=== PATIENT | female | born 1965 | race Caucasian/White ===

== ENCOUNTER → 2016-11-17 | Day surgery (SDC) | payer OTHER ==
[~2016-11-17] MED LIST: LASIX PO; NEXIUM PO; OMEPRAZOLE40 M1 PO; SYNTHROID0.15 MG PO; SYNTHROID112 MCG PO; ZOLOFT PO; ZOLOFT100 MG PO
--- NOTE | ~2016-11-17 | CO ---
Unit #: [id number] #: [id number] Patient: ELIZABETH ERNST [id number] [address] [place], [place] [address] [id number] O MR#: [id number] NAME: ELIZABETH ERNST ROOM: Age: 51 Sex: F Admission Date: 11/17/2016 : 1965 Attending Physician: Silvano Lei M.D. Primary Care Physician: Silvano Lei M.D. Consultation Date: 11/17/2016 CONSULTATION REPORT REASON FOR CONSULTATION Dysphagia and dyspepsia. HISTORY OF PRESENT ILLNESS Ms. Ernst complains of significant postprandial retrosternal ascending heartburn both during daytime as well as nighttime as well as dysphagia to solids, which is intermittent. There is no history of weight loss. Her appetite is unchanged. PAST MEDICAL HISTORY She has no significant past medical history except for that of gastroesophageal reflux. PAST SURGICAL HISTORY Included cholecystectomy, partial hysterectomy, thyroidectomy, pilonidal sinus surgery, exploratory laparotomy for endometriosis. MEDICATIONS Include the following Synthroid, Zoloft, Lasix, and Nexium and she takes 40 mg Nexium at nighttime. ALLERGIES The patient is allergic to codeine. SOCIAL HISTORY The patient does smoke and has more than 40 pack year history of smoking. Does not drink alcohol. FAMILY HISTORY There is no family history of colon, pancreatic cancer, or liver disease. REVIEW OF SYSTEMS Detailed review of organ systems does not reveal any recent weight loss. No history of fever, chills, or rigors. No history of headache, seizure, chest pain, or syncope. No history of cough, expectoration, or hemoptysis. No history of dysuria, hematuria, or pyuria. No history of focal seizures or extremity weakness. Rest of the review of organ systems is unremarkable. PHYSICAL EXAMINATION GENERAL: She is alert and oriented, appears comfortable. VITAL SIGNS: Stable with a temperature of 97.6, pulse 71 per minute and regular, respiratory rate is 18, blood pressure is 101/69. HEENT: She has no pallor, icterus, lymphadenopathy, or peripheral edema. Unit #: [id number] #: [id number] Patient: ELIZABETH ERNST CARDIOVASCULAR: Normal heart sounds. No murmurs on auscultation. LUNGS: Reveal normal breath sounds. Good air entry. ABDOMEN: Soft and nontender. Liver and spleen are not palpable. Bowel sounds normal. CLINICAL IMPRESSION The patient most likely has breakthrough symptoms of acid reflux and may have esophageal stricture. An upper endoscopy and possible dilation is indicated will be done shortly. Thank you for asking me to see this pleasant woman. I appreciate the consult. Dictated by... Lico Roth/annelise TD: 11/17/2016 08:40 JOB #: [id number] CC: Marleni Morales M.D. CONSULTATION REPORT X Silvano Lei MD X CONSULTATION REPORT
--- NOTE | ~2016-11-17 | OR ---
Unit #: [id number] #: [id number] Patient: ELIZABETH JAVIER [id number] [address] [place], [place] [address] [id number] O MR#: [id number] NAME: ELIZABETH JAVIER ROOM: Date of Procedure: 11/17/2016 Admission Date: 11/17/2016 Surgeon: Silvano Lei M.D. : 1965 Attending Physician: Silvano Lei M.D. Primary Care Physician: Silvano Lei M.D. OPERATIVE REPORT PREOPERATIVE DIAGNOSES Dysphagia and dyspepsia. PROCEDURES PERFORMED Upper gastrointestinal endoscopy and biopsy as well as upper gastrointestinal endoscopy and dilation. POSTOPERATIVE DIAGNOSES The patient had moderately severe diffuse duodenitis involving the duodenal bulb. This was in the form of multiple erosions, erythema, and aphthous ulcers in the duodenal bulb. The rest of the examination up to third part of duodenum was normal. Specifically, there was no esophagitis nor any stricture. The esophagus however dilated using a 60-Hungarian Morse dilator empirically because of the patient's history of dysphagia. RECOMMENDATIONS The patient is advised to increase the dose of Nexium to 40 mg p.o. b.i.d. She will be followed up in the office in 3 months' time. SEDATION USED MAC. DESCRIPTION OF PROCEDURE Following detailed explanation of potential risks and complications of an upper endoscopy, namely perforation, bleeding, and complications related to sedation, the patient was brought to GI lab and laid in the left lateral decubitus position. Lubricated tip of the Olympus video upper endoscope was passed through the bite block into the proximal esophagus under direct vision. The entire esophageal mucosa was examined and appeared normal. Z-line was nicely demarcated, there being no esophagitis or hiatus hernia. No stricture or ring was seen. The scope was then advanced into the gastric cavity and the latter was insufflated. Mucosa of the fundus, body, and antrum examined and appeared unremarkable. Pylorus was intubated with visualization of the duodenal bulb. The latter was noted to have moderately severe duodenitis. The second and third part of duodenum were normal. Upon withdrawal and retroflexion, incisura, cardia, and greater curve examined and biopsy obtained from the antrum for CLOtest. The scope was withdrawn in the distal esophagus. The entire esophageal mucosa was examined all the way up to pharynx, no additional findings noted. A 60-Hungarian Morse dilator was introduced through the oral cavity and Unit #: [id number] #: [id number] Patient: ELIZABETH JAVIER advanced into the esophagus. Relook endoscopy did not show any bleeding or fracturing indicating the patient had wide open esophagus to start with. She tolerated the procedure without any postprocedure complications. Dictated by... Lico Roth/annelise TD: 11/17/2016 08:03 JOB #: [id number] CC: Marleni Morales M.D. OPERATIVE REPORT X Silvano Lei MD X PROCEDURE OPERATIVE NOTE
== END | disposition home or self-care (01) ==
LOC: CGUS 05:53
DX: K26.9 Duodenal ulcer, unspecified as acute or chronic, without hemorrhage or perforation (principal); K29.80 Duodenitis without bleeding; J44.9 Chronic obstructive pulmonary disease, unspecified; E89.0 Postprocedural hypothyroidism; F17.210 Nicotine dependence, cigarettes, uncomplicated; Z88.5 Allergy status to narcotic agent; Z79.899 Other long term (current) drug therapy; Z90.49 Acquired absence of other specified parts of digestive tract; Z90.89 Acquired absence of other organs; Z90.710 Acquired absence of both cervix and uterus; Z98.51 Tubal ligation status; Z98.890 Other specified postprocedural states
CPT/HCPCS: 76705; 87077